=== PATIENT | male | born 1980 | race Caucasian/White ===

== ENCOUNTER 2017-11-13 05:12 | Day surgery (SDC) | payer BC ==
[~2017-11-13] VITALS: Ht 188 cm; Wt 88.3 kg
[2017-11-13] MEDS ORDERED: LACTATED RINGERS 1,000 ML IV SCH (06:00)
[2017-11-13] MEDS ORDERED: ESOM40CA PO (06:00)
[2017-11-13] MEDS ORDERED: LEVO112T2 PO (06:00)
[2017-11-13 06:14] VITALS: BP 142/88
[2017-11-13] MEDS ORDERED: BUPIVACAINE/PF 0.5% ONE (06:15)
[2017-11-13] MEDS ORDERED: MIDAZOLAM 1 MG/ML, 2ML ONE (06:32)
[2017-11-13] MEDS ORDERED: FENTANYL PF 100 MCG/2ML ONE ×3 (06:32→09:22)
[2017-11-13] MEDS ORDERED: PROPOFOL 10 MG/ML, 20ML ONE (07:27)
[2017-11-13] MEDS ORDERED: ROPIvacaine/PF 0.5%, 30 ML ONE (07:27)
[2017-11-13] MEDS ORDERED: CEFAZOLIN 1,000 MG ONE ×2 (07:27)
[2017-11-13] MEDS ORDERED: PROMETHAZINE 25 MG/ML, 1ML IV PRN (08:00)
[2017-11-13] MEDS ORDERED: ACETAMINOPHEN 325 MG TABLET PO PRN (08:00)
[2017-11-13] MEDS ORDERED: HYDROmorphone 1 MG/ML, 1ML IV PRN (08:00)
[2017-11-13] MEDS ORDERED: ALBUTEROL SULFATE 2.5 MG/3 ML NPPB PRN (08:00)
[2017-11-13] MEDS ORDERED: OXYcodone 5 MG/5 ML ORAL.SOL UDC PO PRN (08:00)
[2017-11-13] MEDS ORDERED: MEPERIDINE/PF 25MG/0.5ML IVPush PRN (08:00)
[2017-11-13] MEDS ORDERED: DIAZEPAM 5 MG/ML, 2ML IVPush PRN (08:00)
[2017-11-13] MEDS ORDERED: KETOROLAC 30 MG/1 ML IV PRN (08:00)
[2017-11-13] MEDS ORDERED: ACETAMINOPHEN 650 MG/20.3 ML UDC ONE (09:21)
[2017-11-13] MEDS ORDERED: OXYcodone 5 MG/5 ML ORAL.SOL UDC ONE (09:21)
[2017-11-13] MEDS ORDERED: KETOROLAC 30 MG/1 ML ONE (09:22)
[2017-11-13] MEDS ORDERED: ACETAMINOPHEN 325 MG TABLET ONE (09:22)
[2017-11-13] MEDS: FENTANYL PF 100 MCG/2ML IV PRN ×2 (09:25→09:30)
== END 2017-11-13 11:05 ==
LOC: OUT 05:12
PROVIDERS: ATTEND Orthopaedic Surgery Foot and Ankle Surgery
DX: S93.431A Sprain of tibiofibular ligament of right ankle, initial encounter (principal); M25.371 Other instability, right ankle; M25.774 Osteophyte, right foot; M25.771 Osteophyte, right ankle; M19.171 Post-traumatic osteoarthritis, right ankle and foot; E03.9 Hypothyroidism, unspecified; K21.9 Gastro-esophageal reflux disease without esophagitis; X58.XXXA Exposure to other specified factors, initial encounter; Y93.89 Activity, other specified; Y92.89 Other specified places as the place of occurrence of the external cause; Y99.8 Other external cause status; Z72.89 Other problems related to lifestyle
CPT/HCPCS: 27635; 27695; 28104; 29898; C1713; J0690; J1885; J2250; J2704; J2795; J3010; J7120; J3490